=== PATIENT | male | born 1940 | race Caucasian/White ===

== ENCOUNTER 2020-05-09 18:00 | Inpatient (IN) | payer MEDICARE, MEDICAID ==
[~2020-05-09] VITALS: Ht 188 cm; Wt 71.1 kg
[2020-05-09] MEDS ORDERED: DEXTROSE (50%) 50ML SYRG IV ONE (18:30)
[2020-05-09] MEDS ORDERED: SODIUM CHLORIDE 0.9% 1,000 ML IV ONE (18:30)
[2020-05-09] MEDS ORDERED: ACETAMINOPHEN 500 MG TAB PO ONE (18:30)
[2020-05-09 19:18] LABS: Lactic Acid w/Reflex 4.4 mmol/L (0.4-2.0)
[2020-05-09 19:19] LABS: Basophils # (auto) 0 10 ^3/uL (0-0.2); Basophils % (auto) 0.4 % (0.0-2.0); Eosinophils # (auto) 0 10 ^3/uL (0-0.8); Eosinophils % (auto) 0.4 % (0.0-7.0); Hematocrit 39.4 % (41.0-53.0); Hemoglobin 13.4 g/dL (13.5-17.5); Lymphocytes # (auto) 0.2 10 ^3/uL (0.4-5.4); Lymphocytes % (auto) 3.4 % (10.0-50.0); Mean Corpuscular Hemoglobin 31.5 pg (28.0-32.0); Mean Corpuscular Volume 92.6 fL (80.0-100.0); Monocytes # (auto) 0.1 10 ^3/uL (0-1.3); Monocytes % (auto) 1.5 % (0.0-12.0); Neutrophils # (auto) 6.4 10 ^3/uL (1.6-8.6); Neutrophils % (auto) 94.3 % (37.0-80.0); Nucleated Red Blood Cells % 0.1 %; Platelet Count (auto) 281 10^3/uL (140-450); Red Blood Cells 4.26 10^6/uL (4.5-5.90); Red Cell Distribution Width 17.2 % (11.8-14.3); White Blood Cell 6.8 10^3/uL (4.4-10.8)
[2020-05-09 19:39] LABS: Blood Alcohol < 3.0 mg/dL (0-5)
[2020-05-09 22:38] LABS: Potassium 3.4 mmol/L (3.5-5.1)
[2020-05-09 22:39] LABS: Albumin 2.4 g/dL (3.4-5.0); BUN/Creatinine Ratio 12.2; Bilirubin, Total 1.7 mg/dL (0.2-1.0); Calcium 9.7 mg/dL (8.5-10.1); Total Protein 5.5 g/dL (6.4-8.2)
[2020-05-09] MEDS ORDERED: ASPirin 81 mg TAB PO ONE (23:15)
[2020-05-09] MEDS ORDERED: CLOPIDOGREL BISULFATE 75 MG TAB PO ONE (23:15)
[2020-05-10] VITALS (50 sets, daily range): BP systolic 76–150; BP diastolic 39–118
[2020-05-10] MEDS ORDERED: ENOXAPARIN SOD 100 MG/1 ML SYRINGE SC ONE (01:00)
[2020-05-10 01:12] LABS: Urine Bacteria FEW /hpf (None Seen); Urine Blood 3+ /uL (Negative); Urine Budding Yeast FEW /hpf (None Seen); Urine Mucus FEW (None Seen); Urine Specific Gravity 1.013 (1.001-1.035); Urine WBC 135 /hpf (0 - 3); Urine WBC Clumps PRESENT /hpf (None Seen)
[2020-05-10 01:30] LABS: Alcohol, Urine < 3.0 mg/dL (0-10); Amphetamine Screen, Urine NEGATIVE (NEGATIVE); Barbiturate Scree,Urine NEGATIVE (NEGATIVE); Benzodiazephine Screen, Urine NEGATIVE (NEGATIVE); Cannabinoid Screen, Urine NEGATIVE (NEGATIVE); Cocaine Screen, Urine NEGATIVE (NEGATIVE); Opiate Scree,Urine NEGATIVE (NEGATIVE); Phencyclidine Screen, Urine NEGATIVE (NEGATIVE)
[2020-05-10] MEDS ORDERED: NITROGLYCERIN 0.4 MG SL TAB SL PRN (01:45)
[2020-05-10] MEDS ORDERED: ONDANSETRON HCL 4 MG/2 ML VIAL IV PRN (01:45)
[2020-05-10] MEDS ORDERED: MORPHINE SULF INJ 2 MG/ML SYRINGE 1ML IV PRN (01:45)
[2020-05-10] MEDS ORDERED: ACETAMINOPHEN 325 MG TAB PO PRN (01:45)
[2020-05-10] MEDS: SODIUM CHLORIDE 0.9% 1,000 ML IV SCH ×2 (03:35→15:08)
[2020-05-10] MEDS ORDERED: NOREPINEPHRINE 8 MG/250ML KIT 250 ML IV ONE (05:31)
[2020-05-10] MEDS: NOREPINEPHRINE 8 MG/250ML KIT 250 ML IV SCH ×2 (05:40→21:59)
[2020-05-10 06:51] LABS: Basophils # (auto) 0 10 ^3/uL (0-0.2); Basophils % (auto) 0.7 % (0.0-2.0); Eosinophils # (auto) 0 10 ^3/uL (0-0.8); Hematocrit 35.2 % (41.0-53.0); Hemoglobin 11.8 g/dL (13.5-17.5); Lymphocytes # (auto) 0.4 10 ^3/uL (0.4-5.4); Lymphocytes % (auto) 12.9 % (10.0-50.0); Mean Corpuscular Hemoglobin 31.8 pg (28.0-32.0); Mean Corpuscular Hgb Conc. 33.5 g/dL (32.0-36.0); Mean Corpuscular Volume 94.8 fL (80.0-100.0); Monocytes # (auto) 0.1 10 ^3/uL (0-1.3); Monocytes % (auto) 5.3 % (0.0-12.0); Neutrophils # (auto) 2.2 10 ^3/uL (1.6-8.6); Neutrophils % (auto) 81.1 % (37.0-80.0); Nucleated Red Blood Cells % 0.2 %; Platelet Count (auto) 182 10^3/uL (140-450); Red Blood Cells 3.71 10^6/uL (4.5-5.90); Red Cell Distribution Width 17.6 % (11.8-14.3); White Blood Cell 2.8 10^3/uL (4.4-10.8)
[2020-05-10 07:11] LABS: BUN/Creatinine Ratio 13.5; Calcium 10.1 mg/dL (8.5-10.1)
--- NOTE | 2020-05-10 08:40 | NUR ---
RECEIVED REPORT FROM DEJAH KNIGHT.
--- NOTE | 2020-05-10 08:50 | NUR ---
CALLED CARDIAC CONSULT TO DR CHATMAN WHO IS HOUSE OFFICER TODAY.
--- NOTE | 2020-05-10 09:00 | NUR ---
Pt being admitted to ICU ELPIDIOLISA VO admitted to ICU via magalisremily on manager port. Patient transfered to bed, connected to ICU monitoring, and weighed by bedscale. Patient oriented to Jessica Harding primary RN, unit, room, bed, and unit policies regarding patient care and visiting hours. All questions and concerns addressed, patient verbalized understanding. NOTE: Patient on Levophed gtt @ 8mcg- BP 76/32 - increased to 10mcg per protocol - see IV spread sheet. Patient oriented to self and time only - re-orients easily, pleasant and cooperative.
[2020-05-10] MEDS ORDERED: ENALAPRIL MALEATE 2.5 MG TAB PO SCH (10:00)
[2020-05-10] MEDS ORDERED: CARVEDILOL 3.125 MG TAB PO SCH (10:00)
--- NOTE | 2020-05-10 11:00 | NUR ---
DR YOUSIF VISITS AND EXAMINES PATIENT - ORDERS RECEIVED.
[2020-05-10] MEDS: ASPirin 81 mg TAB PO SCH (11:30)
[2020-05-10] MEDS: ENOXAPARIN SOD 80 MG/0.8ML SYRINGE SC SCH ×2 (11:30→21:39)
[2020-05-10] MEDS: cefTRIAXone 1GM/50ML D5W 50 ML IV SCH (11:30)
[2020-05-10] MEDS: DOCUSATE SOD 100 MG CAP PO SCH (11:30)
[2020-05-10] MEDS: CLOPIDOGREL BISULFATE 75 MG TAB PO SCH (11:30)
--- NOTE | 2020-05-10 14:00 | NUR ---
LEAD TANK MECHANIC SPOKE TO PATIENT'S SON - OBTAINED LIST OF HOME MEDS - PLACED IN EMR
--- NOTE | 2020-05-10 14:40 | NUR ---
PATIENT C/O CHILLS AND GEN BODY ACHES - TYLENOL GIVEN - SEE MARILEE Addendum: 05/10/20 at 2031 by Jessica Harding RN MAGGY SLATER. TEMP 98.6
[2020-05-10] MEDS ORDERED: AML5T PO (16:08)
[2020-05-10] MEDS ORDERED: DONE5TAB11 PO (16:08)
[2020-05-10] MEDS ORDERED: CAR3125T PO (16:08)
[2020-05-10] MEDS ORDERED: ATOR20TA50 PO (16:08)
[2020-05-10] MEDS ORDERED: FINA5TAB4 PO (16:09)
--- NOTE | 2020-05-10 16:15 | NUR ---
Midline Placement: Patient educated on need for midline placement. All risks and benefits explained and all questions and concerns addresses prior to procedure. 18g/10cm midline inserted via BRACHIAL vein using Ultrasound. Sterile technique utilized. Blood return obtained from SINGLE lumen and flushed easily with NS using proper technique. Midline secured with saline lock; biodisc and occlusive dressing applied. Primary RN notified. Midline lot # [id number].
--- NOTE | 2020-05-10 16:30 | NUR ---
UNABLE TO TAKE PATIENT FOR CT HEAD DUE TO CT SCANNER DOWN FOR CLEANIG.
--- NOTE | 2020-05-10 16:45 | NUR ---
#16 SWISS MENG CATHETER INSERTED AFTER MULTIPLE INCONTINENCE EPISODES - URINE DARK ALEKSEY, CLOUDY WITH FOUL ODOR NOTED.
--- NOTE | 2020-05-10 17:00 | NUR ---
PATIENT ATTEMPTING TO GET OOB PER SELF - RETURNED TO BED AFTER GIVEN DRINK OF WATER - PATIENT DEMANDING DRINK ALTHOUGH INSPECTOR ADVANCED COMPOSITE EXPLAINED NEED FOR NPO FOR TEST THIS PM. SM ALL NOSEBLEED NOTED - PRESSURE APPLIED AND NOSEBLEED STOPPED.
--- NOTE | 2020-05-10 17:15 | NUR ---
O2 APPLIED @ 2L PER NC FOR C/O SOB.
--- NOTE | 2020-05-10 17:30 | NUR ---
STILL UNABLE TO TAKE PATIENT FOR CT DUE TO CT NEEDING CLEANED AFTER JERRY PATIENT, CHARGE NURSE AWARE Addendum: 05/10/20 at 2042 by Jessica Harding RN SHANE SAENZ NOTIFIED.
[2020-05-10 18:08] LABS: INR 1.6 (0.9-1.15); Partial Thromboplastin Time 50.3 sec (23.0-31.2)
--- NOTE | 2020-05-10 19:10 | NUR ---
HERPETOLOGIST PHONES - SATES SCANNER AVAILABLE FOR PATIENT - DAY AND NIGHT CHARGE NURSES AND RN TAKING OVER CARE OF PATIENT INFORMED.
[2020-05-10] MEDS ORDERED: IOHEXOL 350 MG/ML 100ML IJ ONE (20:15)
--- NOTE | 2020-05-10 20:25 | NUR ---
PATIENT REFUSING TO DO CT SCAN AFTER EXPLAINING THE PROCEDURE TO HIM AND THE IMPORTANCE OF THIS. PATIENT KNOWS HIS NAME,TIME AND PLACE PAGED DANY RUIZ AND WILL CALL PATIENT'S SON IF HE CAN TALK TO THE PATIENT. Addendum: 05/10/20 at 2202 by Valerie Hernández RN AFTER TALKING MORE WITH PATIENT, PATIENT IS A&O X4
--- NOTE | 2020-05-10 20:30 | NUR ---
NOSE BLEEDING PATIENT HAVING SOME NOSE BLEEDING FROM FROM THE LEFT NOSTRIL. APPLIED PRESSURE ON THE NOSE AND ICE PACKS BLEEDING HAD STOPPED BUT WILL CONTINUE TO MONITOR BP WITHIN ACCEPTABLE RANGE, ON IV LEVOPHED AT 8MCG/MIN PATIENT NOT FEELING DIZZY OR SHORT OF BREATH NC DISCONTINUED FOR NOW - SATURATION ON RA 99%
--- NOTE | 2020-05-10 21:30 | NUR ---
DANY RUIZ PAGED BUT NOT HAVE CALLED YET PAGED DR. CHATMAN INSTEAD
--- NOTE | 2020-05-10 21:33 | NUR ---
MD CALLED BACK TALKED TO DR. CHATMAN AND INFORMED THAT PATIENT IS REFUSING THE CT SCAN WITH CONTRAST TO BE DONE INCLUDING HEAD CT PATIENT ALSO HAS NOSE BLEEDING TELEPHONE ORDER RECEIVED: 1. DO ULTRASOUND ABDOMEN TO R/O AAA DYLAN INSTEAD 2. CAN HOLD LOVEMokhaOriginX TONIGHT
--- NOTE | 2020-05-10 21:35 | NUR ---
CALLED RADIOLOGY DEPT INFORMED THAT PATIENT IS REFUSING CT SCAN ,WILL ORDER AND DIFFERENT TEST FOR THE MORNING
--- NOTE | 2020-05-10 21:40 | NUR ---
DIET GIVEN PATIENT IS REFUSING CT SCAN - DINNER SERVED TOOK SOME FRUITS ONLY PATIENT SAID HE IS NOT THAT HUNGRY
[2020-05-10] MEDS: ATORVASTATIN 20 MG TAB PO SCH (22:07)
--- NOTE | 2020-05-10 23:00 | NUR ---
PATIENT RESTING NOW, EYES CLOSED. LOOKED COMFORTABLE VS STABLE. NO NOSE BLEEDING SEEN AT THE MOMENT WILL CONTINUE TO MONITOR
[2020-05-11] VITALS (74 sets, daily range): BP systolic 94–152; BP diastolic 47–103
--- NOTE | 2020-05-11 00:23 | NUR ---
NOSE BLEEDING PATIENT STILL HAVE ON AND OFF NOSE BLEEDING IT STOP AFTER PRESSURE APPLIED WILL CONTINUE TO MONITOR
--- NOTE | 2020-05-11 00:55 | NUR ---
RECEIVED A CALL FROM THE STUMMEL SELECTOR - TO KEEP PATIENT NPO STARTING NOW SO THAT THEY CAN DO THE US 1ST THING THE MORNING
--- NOTE | 2020-05-11 04:00 | NUR ---
PATIENT RESTING, EYES CLOSED. LOOKED COMFORTABLE VS STABLE. NO NOSE BLEEDING SEEN AT THE MOMENT WILL CONTINUE TO MONITOR
--- NOTE | 2020-05-11 06:00 | NUR ---
HYGIENE/SKIN ASSESSMENT PATIENT CLEANED,LINENS CHANGED PATIENT NOTED TO HAVE BLANCHABLE REDNESS AT SACRAL AREA AND SKIN TEAR AT LT BUTTOCKS PICTURE TAKEN SKIN TEAR CLEANED AND COVERED WITH OPTIFOAM GENTLE Addendum: 05/11/20 at 0629 by Valerie Hernández RN REMINDED PATIENT TO TURN TO SIDES WHICH HE IS ALREADY DOING
[2020-05-11] MEDS: SODIUM CHLORIDE 0.9% 1,000 ML IV SCH ×2 (06:23→20:16)
[2020-05-11 06:48] LABS: Hematocrit 33.7 % (41.0-53.0); Hemoglobin 11.4 g/dL (13.5-17.5); Mean Corpuscular Hemoglobin 31.3 pg (28.0-32.0); Mean Corpuscular Hgb Conc. 33.9 g/dL (32.0-36.0); Mean Corpuscular Volume 92.2 fL (80.0-100.0); Platelet Count (auto) 220 10^3/uL (140-450); Red Blood Cells 3.65 10^6/uL (4.5-5.90); Red Cell Distribution Width 17.8 % (11.8-14.3); White Blood Cell 11.1 10^3/uL (4.4-10.8)
[2020-05-11 06:51] LABS: Basophils % (manual) 0 (0.0-2.0); Blast Cells 0; Eosinophils % (manual) 0 (0-7); Metamyelocytes % 0; Myelocytes % 0; Promyelocytes % 0; Reactive Lymphocytes 0
[2020-05-11 06:52] LABS: BUN/Creatinine Ratio 23.1; Calcium 10.3 mg/dL (8.5-10.1); Potassium 4.3 mmol/L (3.5-5.1)
[2020-05-11 07:30] LABS: Band Neutrophils % (manual) 1; Lymphocytes % (manual) 13 (10.0-50.0); Monocytes % (manual) 6 (0-12)
[2020-05-11] MEDS: DOCUSATE SOD 100 MG CAP PO SCH ×2 (10:00→11:13)
[2020-05-11] MEDS: ENOXAPARIN SOD 80 MG/0.8ML SYRINGE SC SCH (10:56)
[2020-05-11] MEDS: cefTRIAXone 1GM/50ML D5W 50 ML IV SCH (10:56)
[2020-05-11] MEDS: ASPirin 81 mg TAB PO SCH (10:56)
[2020-05-11] MEDS: CLOPIDOGREL BISULFATE 75 MG TAB PO SCH (10:56)
--- NOTE | 2020-05-11 11:15 | NUR ---
PATIENT REFUSING ALL BLOOD THINNERS "BECAUSE I'VE HAD 2 BLOODY NOSES YESTERDAY" - SHANE AND DR YOUSIF NOTIFIED - NEW ORDERS RECEIVED.
--- NOTE | 2020-05-11 11:20 | NUR ---
PATIENT AGREEABLE TO CT HEAD WITHOUT CONTRAST. PATIENT TO CT PER BED WITH NAILHEAD SETTER ACCOMPANIED PER RN.
--- NOTE | 2020-05-11 11:43 | NUR ---
PATIENT RETURNED FROM CT. DR YOUSIF VISITS AND EXAMINES PATIENT-ORDERS RECEIVED. LARGE AMOUNT URINE NOTED ON FLOOR. MENG DRAINING CLEAR LIGHT ALEKSEY URINE WITH STRONG ODOR NOTED, MENG BAG NOT LEAKING.
--- NOTE | 2020-05-11 12:00 | NUR ---
WOUND CARE NOTE: IN TO SEE PATIENT AT THIS TIME PER WOUND CARE CONSULT REQUEST. PATIENT RECENTLY ADMITTED TO [facility] WITH DIAGNOSIS OF NSTEMI, UTI. CURRENT ANGELA SCORE IS 16. PATIENT NOTED TO HAVE A SMALL WOUND TO THE LEFT BUTTOCK. PATIENT IS AWAKE, ALERT, ORIENTED X 3, TALKING TO HIS SPOUSE ON THE PHONE. PATIENT IS OBSERVED TO SELF TURN/REPOSITION SELF, USING BED MAURER. HE ACQUIRED A SMALL SKIN TEAR/ABRASION TO THE LEFT BUTTOCK. THIS DOES NOT APPEAR TO BE PRESSURE RELATED, MORE IN LINE WITH A FRICTION ABRASION/TEAR. WOUND APPEARS TO BE PARTIAL THICKNESS, MEASURING 0.8 X 1.2 WOUNDBED IS PALE RED/PINK, PARTIAL THICKNESS. PERIWOUND IS PINK. SCANT SEROUS DRAINAGE NOTED. APPLIES ZGUARD, OPTIFOAM GENTLE DRESSING. NO OTHER SKIN INTEGRITY ISSUES NOTED AT THIS TIME. RECOMMEND: BID/PRN APPLICATION WITH ZGUARD, OPTIFOAM GENTLE DRESSING, DIETARY CONSULT, SKIN/WOUND CARE PLAN, SELF TURN Q 2 HOURS, PRN CONDITION PERMITS, CONTINUED MONITORING BY WOUND CARE TEAM. Addendum: 05/11/20 at 1506 by Elizabeth Latham RN Amended: Links added.
[2020-05-11] MEDS ORDERED: PANTOPRAZOLE 40 MG TAB PO ONE (12:15)
--- NOTE | 2020-05-11 12:30 | NUR ---
PATIENT'S MENG BAG NOTED TO BE LEAKING - ANIME DESIGNER CHANGED BAG.
--- NOTE | 2020-05-11 13:00 | NUR ---
PATIENT REFUSED LUNCH DIET - STATES "I DON'T HAVE AN APPETITE".
--- NOTE | 2020-05-11 13:20 | NUR ---
SHANE SAENZ NOTIFIED OF TROPONIN 1.050 - NO NEW ORDERS RECEIVED.
--- NOTE | 2020-05-11 13:33 | NUR ---
BILAT SCD'S APPLIED PER ORDERS.
--- NOTE | 2020-05-11 18:20 | NUR ---
PATIENT REFUSES DINNER MEAL.
[2020-05-11] MEDS: ATORVASTATIN 20 MG TAB PO SCH (21:59)
--- NOTE | 2020-05-11 22:50 | NUR ---
ICU pt transferred to tele floor LISA MAGALLANES transferred to 277 b via bed on lunchroom monitor. All patient medications and personal belongings transferred with patient to receiving floor. Patient care transferred to Nola KNIGHT. Addendum: 05/11/20 at 2351 by Jose Houser RN Pt transferred to 277 b via bed by Dakota KNIGHT.
--- NOTE | 2020-05-11 22:55 | NUR ---
Telemetry transfer from ICU At this time patient has no s/s of distress or SOB. VS: BP 120/68 NV 64 RR 16 Temp 97.6F. All questions and concerns answered. Will continue to monitor Q1 and PRN.
[2020-05-12 05:00] VITALS: BP 108/56
--- NOTE | 2020-05-12 06:30 | NUR ---
Critical lab Critical Troponin, trending down. Per protocol, paged hospitalist. Cardiology consult in place and being followed. At this time patient has no s/s of distress or SOB. Will continue to monitor Q1 and PRN.
--- NOTE | 2020-05-12 07:15 | NUR ---
End of Shift Note Endorsed care to dayshift RN. At this time patient has no s/s of distress or SOB.
--- NOTE | 2020-05-12 07:20 | NUR ---
Opening Shift Note Assumed care of patient, awake and alert. No S/S of distress/SOB or pain. Instructed on POC and to call for assist PRN, will continue to monitor for changes Q1hr and PRN.
[2020-05-12] MEDS: SODIUM CHLORIDE 0.9% 1,000 ML IV SCH (07:35)
[2020-05-12 08:59] VITALS: BP 112/60
[2020-05-12 10:37] LABS: Hematocrit 31.4 % (41.0-53.0); Hemoglobin 10.7 g/dL (13.5-17.5); Mean Corpuscular Hemoglobin 31.7 pg (28.0-32.0); Mean Corpuscular Volume 93.2 fL (80.0-100.0); Platelet Count (auto) 163 10^3/uL (140-450); Red Blood Cells 3.37 10^6/uL (4.5-5.90); White Blood Cell 5.7 10^3/uL (4.4-10.8)
[2020-05-12] MEDS: cefTRIAXone 1GM/50ML D5W 50 ML IV SCH (10:38)
[2020-05-12] MEDS: DOCUSATE SOD 100 MG CAP PO SCH (10:38)
[2020-05-12] MEDS: PANTOPRAZOLE 40 MG TAB PO SCH (10:38)
[2020-05-12 10:49] LABS: Basophils % (manual) 0 (0.0-2.0); Blast Cells 0; Metamyelocytes % 0; Myelocytes % 0; Promyelocytes % 0; Reactive Lymphocytes 0
[2020-05-12 11:05] LABS: Albumin 1.9 g/dL (3.4-5.0); BUN/Creatinine Ratio 21.1; Bilirubin, Total 1.3 mg/dL (0.2-1.0); Calcium 9.7 mg/dL (8.5-10.1); Total Protein 4.7 g/dL (6.4-8.2)
[2020-05-12 11:10] LABS: Band Neutrophils % (manual) 1; Eosinophils % (manual) 1 (0-7); Lymphocytes % (manual) 19 (10.0-50.0); Monocytes % (manual) 7 (0-12)
[2020-05-12 13:31] VITALS: BP 112/54
--- NOTE | 2020-05-12 14:26 | NUR ---
Nutrition Assessment/consult Notes please see attached link for complete assessment Est energy needs IBW 86 [id number] kcal (25-30 kcal/kg IBW), Est protein needs: 86-111 g (1-1.3g/kg IBW). Will reassess prn. Addendum: 05/12/20 at [address] Amended: Links added.
[2020-05-12] MEDS: Ensure Enlive Strawberry 8oz Bottle PO SCH (17:11)
[2020-05-12 17:21] VITALS: BP 136/73
--- NOTE | 2020-05-12 19:00 | NUR ---
Opening Note Assumed care of patient, awake and alert, WITH . No S/S of distress/SOB or pain. Instructed on POC and to call for assist PRN, will continue to monitor for changes. Addendum: 05/12/20 at 2222 by ED MURPHY RN With periods of confusion. Patient is on room air, unlabored breathing. Chase cath draining freely.
[2020-05-12 22:00] VITALS: BP 122/70
[2020-05-12] MEDS: ATORVASTATIN 20 MG TAB PO SCH (22:09)
[2020-05-13 05:38] VITALS: BP 112/60
--- NOTE | 2020-05-13 07:18 | NUR ---
Opening Shift Note Assumed care of patient, awake and alert,x3. No S/S of distress/SOB or pain. Instructed on POC and to call for assist PRN, will continue to monitor for changes Q1hr and PRN.
[2020-05-13 08:56] VITALS: BP 132/67
[2020-05-13] MEDS: cefTRIAXone 1GM/50ML D5W 50 ML IV SCH (09:39)
[2020-05-13] MEDS: Ensure Enlive Strawberry 8oz Bottle PO SCH ×3 (09:39→18:44)
[2020-05-13] MEDS: DOCUSATE SOD 100 MG CAP PO SCH (09:39)
[2020-05-13] MEDS: PANTOPRAZOLE 40 MG TAB PO SCH (09:39)
[2020-05-13] MEDS: ASPirin-EC 81 mg tab PO SCH (09:39)
[2020-05-13 13:00] VITALS: BP 143/73
[2020-05-13] MEDS ORDERED: CARVEDILOL 3.125 MG TAB PO ONE (13:15)
[2020-05-13] MEDS ORDERED: FINASTERIDE 5 MG TAB PO ONE (13:15)
--- NOTE | 2020-05-13 14:17 | NUR ---
SS consult for [facility] for safety and physical therapy. Pt is an alert and oriented but confused as well as hard of hearing male that resides with his spouse and his son, Dakota. Per son's request contacted [facility] and provided consent over the phone. Contacted agency and faxed clinical information. Pt will be seen 24-48 hrs post discharge. Pt's son shahab or sofia will transport him home.
[2020-05-13 16:32] VITALS: BP 121/69
[2020-05-13] MEDS: ATORVASTATIN 20 MG TAB PO SCH (21:43)
[2020-05-13] MEDS: CARVEDILOL 3.125 MG TAB PO SCH (21:44)
[2020-05-13 22:00] VITALS: BP 115/55
[2020-05-13] MEDS ORDERED: DONEPEZIL HYDROCHLORIDE 5 MG TAB PO SCH (22:00)
[2020-05-14 05:00] VITALS: BP 111/57
--- NOTE | 2020-05-14 07:15 | NUR ---
Opening Shift Note Assumed care of patient, awake, alert, A/O X 3 sitting in a high-almeida's position talking to his son upon entering the room. No S/S of distress/SOB or pain. SCD's reapplied and turned on. Instructed on POC and to call for assist PRN. Patient verbalized understanding. Bed is in lowest position and the call light is within reach. Will continue to monitor for changes Q1hr and PRN.
[2020-05-14] MEDS: Ensure Enlive Strawberry 8oz Bottle PO SCH (08:35)
[2020-05-14 09:00] VITALS: BP 109/66
[2020-05-14] MEDS ORDERED: CARV6.25 PO (09:28)
[2020-05-14] MEDS ORDERED: ASPI-543 PO (09:28)
[2020-05-14] MEDS ORDERED: CIPR-173 PO (09:28)
[2020-05-14] MEDS ORDERED: CIPROFLOXACIN HCL 500 MG TAB PO SCH (10:00)
[2020-05-14] MEDS ORDERED: amLODIPine BESYLATE 5 MG TAB PO SCH (10:00)
[2020-05-14] MEDS ORDERED: FINASTERIDE 5 MG TAB PO SCH (10:00)
[2020-05-14] MEDS: ASPirin-EC 81 mg tab PO SCH (10:05)
[2020-05-14] MEDS: PANTOPRAZOLE 40 MG TAB PO SCH (10:05)
[2020-05-14] MEDS: CARVEDILOL 3.125 MG TAB PO SCH (10:05)
[2020-05-14] MEDS: DOCUSATE SOD 100 MG CAP PO SCH (10:06)
--- NOTE | 2020-05-14 11:22 | NUR ---
Dr. Vale at bedside Dr. Vale at bedside discussing plan of care with the patient. Patient has verbalized understanding and all questions were addressed at this time. Doctor has cleared for discharge. Will carry out all necessary orders.
[2020-05-14 11:56] VITALS: BP 109/66
--- NOTE | 2020-05-14 12:44 | NUR ---
D/C PLANNING Attempted to call pt's son, Dakota at [phone], to update on d/c plan. No answer at this time. Will call back again shortly. Will continue to monitor. Addendum: 05/14/20 at 1309 by CRISTOFER WRIGHT RN RN Spoke with pt's son. Aware of d/c and POC.
[2020-05-14 12:51] VITALS: BP 103/58
--- NOTE | 2020-05-14 13:30 | NUR ---
Discharged Discharge instructions given as ordered. Encourage to follow up with PMD as instructed. All questions and concerns addressed. Patient verbalized understanding. Medication reconciliation form completed and copy given to patient. IV removed with catheter intact, pressure dressing applied. Telemetry unit returned to ICU. Patient taken to vehicle received by his son Shahzad via wheelchair with all personal belongings, accompanied by staff. No distress noted at time of departure.
== END 2020-05-14 13:30 | disposition home health service (06) | DRG 871 ==
LOC: EDBD 18:00 → ER 18:00 → TELE 18:01 → ICU WEST 05-10 09:44 → TELE-WESTW 05-11 22:50
PROVIDERS: ADMIT Hospitalist; ATTEND Internal Medicine
DX: A41.9 Sepsis, unspecified organism (principal); R65.21 Severe sepsis with septic shock; I21.4 Non-ST elevation (NSTEMI) myocardial infarction; G93.41 Metabolic encephalopathy; N17.0 Acute kidney failure with tubular necrosis; E43 Unspecified severe protein-calorie malnutrition; N39.0 Urinary tract infection, site not specified; J98.11 Atelectasis; Z68.1 Body mass index [BMI] 19.9 or less, adult; R53.1 Weakness; I50.9 Heart failure, unspecified; E16.2 Hypoglycemia, unspecified; E78.5 Hyperlipidemia, unspecified; Z20.828 Contact with and (suspected) exposure to other viral communicable diseases; I71.4 Abdominal aortic aneurysm, without rupture; F17.210 Nicotine dependence, cigarettes, uncomplicated; I11.0 Hypertensive heart disease with heart failure; I70.0 Atherosclerosis of aorta; Z79.899 Other long term (current) drug therapy; Z79.891 Long term (current) use of opiate analgesic; Z79.01 Long term (current) use of anticoagulants; Z79.2 Long term (current) use of antibiotics; F03.90 Unspecified dementia, unspecified severity, without behavioral disturbance, psychotic disturbance, mood disturbance, and anxiety; I48.91 Unspecified atrial fibrillation
CPT/HCPCS: 36415; 70450; 71045; 76775; 80048; 80053; 80061; 80307; 80320; 81001; 83605; 83735; 83880; 84484; 85007; 85025; 85027; 85610; 85730; 87081; 87086; 87426; 93005; 93306; 96361; 96365; 96375; G0378; J0696